=== PATIENT | male | born 1965 | race Caucasian/White ===

== ENCOUNTER 2018-08-19 06:16 | Day surgery (SDC) | payer BC ==
--- NOTE | 2018-08-07 20:57 | HP ---
PREOPERATIVE HISTORY AND PHYSICAL: DATE OF ADMISSION: 08/19/18 CHIEF COMPLAINT: Left hand numbness. 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 He had a nerve conduction study done by Dr. 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 He presents for left ulnar nerve decompression at the elbow. PAST MEDICAL HISTORY: Borderline hypertension, questionable history of gout. PAST SURGICAL HISTORY: Anterior cervical fusion, C6-7, in 2000 for right-sided nerve symptoms. MEDICATIONS: None. DRUG ALLERGIES: PENICILLIN causes a migratory angioedema. FAMILY HISTORY: Positive for heart disease and polycystic kidney disease. SOCIAL HISTORY: Lives with his . He works as an orthopedic surgeon. He denies tobacco use. Has about 5 alcoholic beverages per week and regularly exercises. He is right-hand dominant. REVIEW OF SYSTEMS: Negative for cephalic, cardiovascular, respiratory, gastrointestinal, genitourinary, other musculoskeletal, skin, neurologic, endocrine, and hematologic symptoms. PHYSICAL EXAMINATION GENERAL: He is a healthy-appearing male in minimal distress at rest. VITAL SIGNS: Weight is 291, height 75 inches, pulse 80, blood pressure 124/102 , respirations 16. HEENT: Unremarkable. He has good range of motion of his neck without pain. Eye movements are concentric. LUNGS: Clear to auscultation. Good inspiratory effort. No wheezing. CARDIAC: Regular rate and rhythm without murmur. PERIPHERAL VASCULAR: He has palpable pulses and no peripheral edema. NEUROLOGICAL: He is alert and oriented without focal deficit. EXTREMITIES: He has slight weakness resisting finger abduction. Decreased sensation in the tip of the little finger. Positive Tinel's sign of the ulnar nerve at the elbow. IMPRESSION: Left ulnar nerve compression at the elbow. PLAN: Plan is for ulnar nerve decompression, left elbow. The surgical procedure, risks, and benefits were explained today. A prescription for [place] was sent to the patient's pharmacy. I will see him back in followup for recheck 10 days postop. [id number]/[facility] #: [id number] MTDD
[~2018-08-19 06:16] MED LIST: Buffered Lidocaine 0.9% SYRIN* 5 ML/SYR SYRINGE INTRADERM ONE; Dexamethasone IV* 4 MG/ML 1 ML (4 MG) IV SLOW PU ONE; Famotidine IV* 10 MG/ML 2 ML (20 mg) IV ONE
[2018-08-19] MEDS ORDERED: Famotidine IV* 10 MG/ML 2 ML (20 mg) ONE (06:17)
[2018-08-19] MEDS ORDERED: Dexamethasone IV* 4 MG/ML 1 ML (4 MG) ONE (06:17)
[2018-08-19] MEDS ORDERED: ceFAZolin 2 GM PREMIX in ORs 0 GM/0 ML BAG IVPB ONE (06:22)
[2018-08-19] MEDS ORDERED: Clindamycin 900 MG/D5W BAG(*) 900 MG/50 ML BAG IVPB ONE (06:47)
[2018-08-19] MEDS ORDERED: fentaNYL* 50 MCG/ML 2 ML VIAL (100 MCG VIAL) ONE (06:57)
[2018-08-19] MEDS ORDERED: Midazolam* 1 MG/ML 2 ML VIAL (2 MG) ONE (06:58)
[2018-08-19] MEDS ORDERED: Naloxone* 0.4 MG/ML 1 ML VIAL IV PRN (07:07)
[2018-08-19] MEDS ORDERED: Lidocaine 1% INJ* 10 MG/ML 30 ML SDV ONE (07:25)
[2018-08-19] MEDS ORDERED: ROPIVACAINE 5 MG/ML 30 ML BTL (0.5%) ONE (07:26)
[2018-08-19 08:55] VITALS: BP 127/77
[2018-08-19] MEDS ORDERED: Propofol* 10 MG/ML 20 ML BTL IV PUSH ONE (14:27)
--- NOTE | 2018-08-20 09:22 | OP ---
DATE OF OPERATION: 08/19/18 - [facility] DATE OF : 65 SURGEON: Karen Martinez MD LABORER/KEY MAN: SUELLEN Sutton ANESTHESIA: Local MAC. PRE-OP DIAGNOSIS: Ulnar nerve compression at the left elbow. POST-OP DIAGNOSIS: Ulnar nerve compression at the left elbow. OPERATIVE PROCEDURE: Left ulnar nerve decompression. ESTIMATED BLOOD LOSS: Zero. TOURNIQUET TIME: About 30 minutes. INDICATIONS FOR PROCEDURE: Ramakrishna is a 53-year-old man with numbness and tingling in the ulnar nerve distribution of his left hand specifically at the tip of his left little finger. Nerve condition study was consistent with an ulnar nerve compression proximal to the flexor carpi ulnaris muscle. He presents for ulnar nerve decompression at the left elbow. DESCRIPTION OF PROCEDURE: The patient was brought to the operating room, was given a sedation anesthetic and a local infiltration of 10 cc of 1% plain lidocaine on the medial aspect of the left elbow. Additional 10 cc was used during the procedure. Skin of his left upper extremity was prepped and draped in the usual sterile fashion. The upper extremity was exsanguinated and the tourniquet elevated to 250 mmHg. A curvilinear incision was made centered between the medial epicondyle and the tip of the olecranon process. We dissected bluntly through the subcutaneous tissue down to the ulnar nerve just proximal to the cubital tunnel. The nerve was carefully dissected out proximally for several centimeters above the elbow joint and then through the cubital tunnel and distally into the flexor carpi ulnaris muscle, the medial antebrachial cutaneous nerve was preserved and retracted by the surgical services director Manuela Britton. The FCU fascia both deep and superficial was divided and the nerve traced down into the belly of the muscle. The area of most compression appeared to be at the cubital tunnel. The medial intermuscular septum was divided with the Bovie and then the wound was irrigated with saline. The subcutaneous tissue was closed with 3-0 Polysorb suture and the skin with skin harrison. The wound was dressed with Xeroform, 4x4, Webril, and an Greg wrap. The patient tolerated the procedure well and was brought to the recovery room in good condition. [id number]/[facility] #: [id number] MTDD
== END 2018-08-19 09:02 | disposition home or self-care (01) ==
LOC: OREAST 06:16
PROVIDERS: ATTEND Orthopaedic Surgery
DX: G56.22 Lesion of ulnar nerve, left upper limb (principal); R03.0 Elevated blood-pressure reading, without diagnosis of hypertension; Z68.35 Body mass index [BMI] 35.0-35.9, adult
CPT/HCPCS: J0690; J1100; J2250; J2704; J2795; J3010